=== PATIENT | female | born 1970 | race African-American/Black ===

== ENCOUNTER 2018-02-11 09:00 | Day surgery (SDC) | payer BC ==
[2018-02-10 15:12] VITALS: BMI 30.9
[~2018-02-11 09:00] MED LIST: BUPIVACAINE HCL/PF (5 MG/ML) 30 ML VIAL IJ ONE; DEXAMETHASONE SOD PHOSPHATE 4 MG/1 ML VIAL NR ONE; LACTATED RINGERS SOLUTION 1,000 ML IV SCH; ONDANSETRON 4 MG/2 ML VIAL IVPUSH PRN; ceFAZolin SODIUM 1 GM VIAL IVPB ONE; oxyCODONE HCL 5 MG TABLET PO PRN
[2018-02-11] MEDS ORDERED: LIDOCAINE HCL 1%, 10 MG/ML (20ML VIAL) PNB ONE (09:03)
[2018-02-11] MEDS ORDERED: BUPIVACAINE HCL/PF 0.5% (5MG/ML) 10 ML VIAL IJ ONE (09:03)
[2018-02-11] MEDS ORDERED: BACITRACIN 50,000 UNITS VIAL NR ONE (09:04)
[2018-02-11] MEDS ORDERED: BUPIVACAINE HCL/PF (5 MG/ML) 30 ML VIAL IJ ONE (10:05)
[2018-02-11] MEDS ORDERED: DEXAMETHASONE SOD PHOSPHATE 4 MG/1 ML VIAL NR ONE (10:05)
[2018-02-11 10:41] VITALS: TEMP 98
[2018-02-11 12:06] VITALS: BP 144/59; PULSE 62
--- NOTE | 2018-02-12 13:29 | PATH ---
Surgical Pathology Report Patient Name: CYN MCCULLOUGH [facility]. Rec. #: [id number] /Age/Gender: 1970 (Age: 47) / F Account: [id number] Location: [facility] SURGICAL Taken: 02/11/2018 Received: 02/11/2018 Reported: 02/12/2018 Physicians: Lanette Clinton DPM Specimen(s) Received BONE AND TISSUE FROM LEFT FOOT Clinical History Left Yvonne's bunion and hammer toe Final Diagnosis BONE AND TISSUE, LEFT FOOT, EXCISION: BONE WITH ATTACHED ARTICULAR CARTILAGE SHOWING REACTIVE CHANGES, AND SKIN WITH HYPERKERATOSIS AND PARAKERATOSIS. Electronically Signed Cr Colon M.D. Gross Description Received in formalin labeled "bone and tissue from left foot," is a 2.7 x 2.3 x 0.3 cm aggregate of multiple juarez bone fragments. Also received in the same container are 2 juarez, elliptical portions of skin measuring 1.7 x 0.7 cm and 1.8 x 0.8 cm. [employer] sections are submitted in one cassette, following decalcification. 02/11/201802/11/2018
== END 2018-02-11 13:00 | disposition home or self-care (01) ==
LOC: JASU-SURG 09:00
PROVIDERS: ATTEND Podiatrist Foot Surgery
PROC: 0QBQ0ZZ Excision of Right Toe Phalanx, Open Approach (ICD-10-PCS; principal; 2018-02-11 08:30)
PROC: 0SRQ0JZ Replacement of Left Toe Phalangeal Joint with Synthetic Substitute, Open Approach (ICD-10-PCS; 2018-02-11 08:30)
DX: M21.622 Bunionette of left foot (principal); M20.42 Other hammer toe(s) (acquired), left foot
CPT/HCPCS: 73630-TC-LT; 88304-TC; 88311-TC; 94760